=== PATIENT | female | born 1965 | race African-American/Black ===

== ENCOUNTER 2020-09-19 12:09 | Emergency (ER) | payer BC ==
--- NOTE | 2020-09-19 13:13 | RADIOLOGY REPORT (SQ) ---
EXAM DESCRIPTION: CHEST SINGLE VIEW IMAGES COMPLETED DATE/TIME: 09/19/2020 1:04 pm REASON FOR STUDY: shortness of breath COMPARISON: None. EXAM PARAMETERS: NUMBER OF VIEWS: One view. TECHNIQUE: An AP view of the chest was obtained. RADIATION DOSE: NA LIMITATIONS: None. FINDINGS: LUNGS AND PLEURA: Subtle bilateral peripheral patchy parenchymal opacities. There is no s izable pleural effusion or pneumothorax. MEDIASTINUM AND HILAR STRUCTURES: No mediastinal or hilar contour abnormality. HEART AND VASCULAR STRUCTURES: The cardiac silhouette and pulmonary vasculature are within normal pratt its. BONES: No acute findings. HARDWARE: None in the chest. OTHER: No other finding. IMPRESSION: Subtle bilateral peripheral patchy parenchymal opacities. Clinical correlation for sign s and symptoms of an atypical infection (including COVID-19) is recommended. TECHNICAL DOCUMENTATION: JOB ID: [id number]- All Rights Reserved Reading location - IP/workstation name: [email or web address]
[2020-09-19] MEDS ORDERED: BENZONATATE 100 MG CAPSULE PO ONE (13:29)
[2020-09-19] MEDS ORDERED: AZITHROMYCIN 250 MG TABLET PO ONE (13:29)
--- NOTE | 2020-09-19 13:49 | ER Document Report ---
ED Respiratory Problem - General Chief Complaint: Cough Stated Complaint: DIFFICULTY BREATHING Time Seen by Provider: 09/19/20 12:47 Primary Care Provider: AUBREY SOL MD [ACTIVE STAFF] - Follow up as needed Notes: Patient is a 55-year-old female presents emergency department with a chief complaint of a cough that she has had for the past 3 days. 5 days ago, the patient has a positive for COVID-19. Patient states that she had a slight fever at that time, but denies any fever now. Denies any nausea, vomiting, or diarrhea. Patient states that she continues to have a cough. - Related Data Allergies/Adverse Reactions: No Known Allergies Allergy (Unverified 09/19/20 12:51) Home Medications: Metoprolol Past Medical History - Social History Smoking Status: Never Smoker Family History: Reviewed & Not Pertinent - Past Medical History Cardiac Medical History: Reports: Hx Hypertension Review of Systems - Review of Systems Notes: REVIEW OF SYSTEMS: CONSTITUTIONAL : Denies recent illness. Denies recent unintentional weight loss. Denies fever, chills, or sweats. EENT: Denies eye, ear, throat, or mouth pain, discharge, or symptoms. Denies nasal or sinus congestion. CARDIOVASCULAR: Denies chest pain. RESPIRATORY: See HPI. GASTROINTESTINAL: Denies nausea, vomiting, and diarrhea. Denies abdominal pain. Denies constipation. GENITOURINARY: Denies difficulty urinating, burning, blood in urine, urgency or frequency. MUSCULOSKELETAL: Denies neck and back pain. Denies joint pain or swelling. SKIN: Denies rash, itchiness, or lesions HEMATOLOGIC : Denies easy bruising or bleeding. LYMPHATIC: Denies swollen, painful, enlarged glands. NEUROLOGICAL: Denies no numbness or tingling denies weakness. Denies headache. Denies altered mental status. Denies alteration in speech. PSYCHIATRIC: Denies stress, anxiety, alteration in sleep patterns, or depression. All other systems reviewed and negative. Physical Exam - Vital signs Vitals: Temp Pulse Resp BP Pulse Ox 98.7 F 93 18 143/73 H 92 09/19/20 12:53 09/19/20 12:53 09/19/20 12:53 09/19/20 12:53 09/19/20 12:53 - Notes Notes: PHYSICAL EXAMINATION: GENERAL: Appears well, healthy, well-nourished, no acute distress. HEAD: Normocephalic, atraumatic. EYES: PERRL, conjunctiva normal, all extraocular movements intact, sclera n onicteric ENT: Moist mucous membranes. NECK: Supple, no noticeable swelling, redness, rash. Normal range of motion. LUNGS: Diminished breath sounds in the bases. CARDIOVASCULAR: S1-S2, regular rate, regular rhythm. Radial pulses 2+, normal. ABDOMEN: Normoactive bowel sounds. Soft, nontender, no guarding, no rebound tenderness, and no masses palpated. EXTREMITIES: Normal strength and range of motion, no pitting or edema. No cyanosis. NEUROLOGICAL: Moves all extremities upon command. Strength 5/5 in all extremities. PSYCH: Normal mood, normal affect. SKIN: Warm, dry. No rash, lesions, ulcerations noted. Normal skin turgor. Course - Re-evaluation Re-evalutation: 09/19/20 14:41 Patient states that she feels better after receiving azithromycin and Tessalon Perles. Labs are unremarkable. Chest x-ray shows pneumonia. We will continue the azithromycin. Patient will continue quarantine. Follow-up precautions were given. Verbal discharge instructions were given to the patient. They verbalized understanding. They are stable for discharge. - Vital Signs Vital signs: Temp Pulse Resp BP Pulse Ox 98.7 F 93 18 143/73 H 92 09/19/20 12:53 09/19/20 12:53 09/19/20 12:53 09/19/20 12:53 09/19/20 12:53 - Laboratory Result Diagrams: 09/19/20 13:28 09/19/20 13:28 Laboratory results interpreted by me: 09/19/20 13:28 Carbon Dioxide 31 H BUN 5 L Glucose 140 H AST 83 H ALT 85 H Discharge - Discharge Clinical Impression: Cough Pneumonia Qualifiers: Pneumonia type: due to unspecified organism Laterality: unspecified laterality Lung location: unspecified part of lung Qualified Code(s): J18.9 - Pneumonia, unspecified organism Condition: Stable Disposition: HOME, SELF-CARE Additional Instructions: You were seen today in the emergency department for cough. You have pneumonia due to your COVID-19. Continue quarantining. Take the antibiotics as prescribed. Take the cough medicine every 8 hours. Prescriptions: Benzonatate [Tessalon Perles 100 mg Capsule] 100 mg PO Q8HP PRN #40 capsule PRN Reason: Azithromycin [Zithromax 250 mg Tablet] 250 mg PO DAILY #4 tablet Forms: Return to Work Referrals: AUBREY SOL MD [ACTIVE STAFF] - Follow up as needed
[2020-09-19 13:54] LABS: ABSOLUTE LYMPHOCYTES (AUTO) 1.2 10^3/uL (0.5-4.7); ABSOLUTE MONOCYTES (AUTO) 0.4 10^3/uL (0.1-1.4); ABSOLUTE NEUT (AUTO) 4.8 10^3/uL (1.7-8.2); BASOPHILS % (AUTO) 0.2 % (0-2); EOSINOPHILS % (AUTO) 0.1 % (0-6); HEMATOCRIT 40.9 % (36.0-47.0); HEMOGLOBIN 14.2 g/dL (12.0-15.5); MEAN CORPUSCULAR HEMOGLOBIN 29.8 pg (27.0-33.4); MEAN CORPUSCULAR HGB CONC 34.7 g/dL (32.0-36.0); MEAN CORPUSCULAR VOLUME 86 fl (80-97); MONOCYTES % (AUTO) 5.6 % (3-13); PLATELET COUNT 213 10^3/uL (150-450); RED BLOOD COUNT 4.76 10^6/uL (3.72-5.28); RED CELL DISTRIBUTION WIDTH 13.6 % (11.5-14.0); SEGMENTED NEUTROPHILS % (AUTO) 75.1 % (42-78); TOTAL CELLS COUNTED % (AUTO) 100 %; WHITE BLOOD COUNT 6.3 10^3/uL (4.0-10.5)
[2020-09-19 14:15] LABS: ALBUMIN 4.3 g/dL (3.5-5.0); ALKALINE PHOSPHATASE 106 U/L (38-126); ANION GAP 9 (5-19); ASPARTATE AMINO TRANSFERASE 83 U/L (14-36); BILIRUBIN,DIRECT 0.2 mg/dL (0.0-0.4); BILIRUBIN,TOTAL 0.6 mg/dL (0.2-1.3); BLOOD UREA NITROGEN 5 mg/dL (7-20); CALCIUM 9.5 mg/dL (8.4-10.2); CARBON DIOXIDE 31 mmol/L (22-30); CHLORIDE 102 mmol/L (98-107); GLUCOSE 140 mg/dL (75-110); POTASSIUM 3.9 mmol/L (3.6-5.0); TOTAL PROTEIN 7.8 g/dL (6.3-8.2)
[2020-09-19 15:43] VITALS: BP 132/70
== END 2020-09-19 15:43 | disposition home or self-care (01) ==
LOC: ER 12:09
DX: U07.1 COVID-19 (principal); J12.89 Other viral pneumonia; R05 Cough; I10 Essential (primary) hypertension; Z79.899 Other long term (current) drug therapy
CPT/HCPCS: 36415; 71045; 80053; 85025; 99284

== ENCOUNTER 2020-09-21 23:10 | Inpatient (IN) | payer BC ==
[2020-09-22] MEDS ORDERED: ACETAMINOPHEN 325 MG TABLET PO ONE (00:39)
--- NOTE | 2020-09-22 00:42 | ER Document Report ---
ED Medical Screen (RME) - General Chief Complaint: Shortness Of Breath Stated Complaint: COVID+ SHORTNESS OF BREATH/COUGH Primary Care Provider: PAMELLA CLEMENT FNP [Primary Care Provider] - Follow up as needed - HPI Notes: 09/22/20 00:37 Rapid Medical Exam HPI: This is a 55-year-old female presents to the ED complaining of shortness of breath associated with Covid. Patient's testing was positive for 11 days ago. She was seen in the ED about 3 to 4 days ago with similar symptoms and was diagnosed with pneumonia based on chest x-ray and discharged with a Z-Thanh and some cough meds.patient completed course of antibiotics and cough meds and says her symptoms have worsened. She complains of shortness of breath especially associated with coughing. Her temp in the ED is 100.5. Denies chest pain abdominal pain, nausea vomiting. Physical Exam: GENERAL: She appears ill but nontoxic. HEAD: Atraumatic, normocephalic. ENT: Moist mucous membranes. RESP: Respirations even and unlabored CV- Regular rate. NEURO: No focal neurological deficits. Moves all extremities spontaneously and on command. My involvement in this patients care was limited to a rapid initial assessment. A comprehensive ED assessment and evaluation of the patient, analysis of test results, treatment, and completion of the medical decision making process will be performed by other ER providers. 09/22/20 00:46 - Related Data Allergies/Adverse Reactions: No Known Allergies Allergy (Unverified 09/19/20 12:51) Past Medical History - Past Medical History Cardiac Medical History: Reports: Hx Hypertension Physical Exam - Vital signs Vitals: Temp Pulse Resp BP Pulse Ox 100.5 F H 108 H 19 176/76 H 97 09/21/20 23:26 09/21/20 23:26 09/21/20 23:26 09/21/20 23:26 09/21/20 23:26 Course - Vital Signs Vital signs: Temp Pulse Resp BP Pulse Ox 100.5 F H 108 H 19 176/76 H 97 09/21/20 23:26 09/21/20 23:26 09/21/20 23:26 09/21/20 23:26 09/21/20 23:26 Doctor's Discharge - Discharge Referrals: PAMELLA CLEMENT FNP [Primary Care Provider] - Follow up as needed
[2020-09-22] MEDS ORDERED: ACETAMINOPHEN 325 MG TABLET ONE (02:58)
[2020-09-22 03:36] LABS: ABSOLUTE LYMPHOCYTES (AUTO) 0.9 10^3/uL (0.5-4.7); ABSOLUTE MONOCYTES (AUTO) 0.6 10^3/uL (0.1-1.4); ABSOLUTE NEUT (AUTO) 8.5 10^3/uL (1.7-8.2); BASOPHILS % (AUTO) 0.3 % (0-2); HEMATOCRIT 38.3 % (36.0-47.0); HEMOGLOBIN 13.3 g/dL (12.0-15.5); MEAN CORPUSCULAR HEMOGLOBIN 29.7 pg (27.0-33.4); MEAN CORPUSCULAR HGB CONC 34.7 g/dL (32.0-36.0); MEAN CORPUSCULAR VOLUME 86 fl (80-97); MONOCYTES % (AUTO) 5.7 % (3-13); PLATELET COUNT 299 10^3/uL (150-450); RED BLOOD COUNT 4.47 10^6/uL (3.72-5.28); RED CELL DISTRIBUTION WIDTH 13.7 % (11.5-14.0); TOTAL CELLS COUNTED % (AUTO) 100 %
[2020-09-22 03:58] LABS: ANION GAP 14 (5-19); BLOOD UREA NITROGEN 8 mg/dL (7-20); CALCIUM 9.8 mg/dL (8.4-10.2); CARBON DIOXIDE 27 mmol/L (22-30); CHLORIDE 96 mmol/L (98-107); GLUCOSE 172 mg/dL (75-110)
--- NOTE | 2020-09-22 04:22 | RADIOLOGY REPORT (SQ) ---
CLINICAL HISTORY: covid, sob COMPARISON: 09/19/2020. 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 There are mild patchy bilateral scattered areas of airspace disease. There is no pleural effusion. There is no pneumothorax. There are no acute osseous findings. IMPRESSION: No change.
[2020-09-22] MEDS ORDERED: DEXAMETHASONE SOD PHOS INJ 10 MG/1 ML VIAL IV ONE (05:20)
[2020-09-22] MEDS ORDERED: IPRATROPIUM/ALBUTEROL 0.5-2.5 MG/3 ML AMPUL NEB ONE (05:20)
--- NOTE | 2020-09-22 05:31 | ER Document Report ---
ED Respiratory Problem - General Chief Complaint: Shortness Of Breath Stated Complaint: COVID+ SHORTNESS OF BREATH/COUGH Time Seen by Provider: 09/22/20 04:51 Primary Care Provider: PAMELLA CLEMENT FNP [Primary Care Provider] - Follow up as needed Notes: Patient presents complaining of worsening shortness of breath. The patient was diagnosed with Covid 11 days ago. Patient states she was seen in the emergency department a few days ago and diagnosed with pneumonia and given an antibiotic as well as cough medication. Patient reports worsening shortness of breath with temperature of 100.5 today. Patient denies any chest pain, nausea or vomiting. Reports only past medical history of hypertension. - HPI Patient complains to provider of: Cough, Short of breath. No: Asthma, Chest pain Onset: Other - 11 days ago Duration: Worse/persistent Initiating Event: URI Pain Level: Denies Context: denies: Hx asthma, Hx CHF, Hx COPD, Recent surgery, Smoker Cough: Nonproductive Associated symptoms: Cough, Fever, Short of breath. denies: Bloody cough, Chest pain/discomfort Similar symptoms previously: No Recently seen / treated by doctor: Yes - Related Data Allergies/Adverse Reactions: No Known Allergies Allergy (Unverified 09/19/20 12:51) Past Medical History - General Information source: Patient - Social History Smoking Status: Never Smoker Frequency of alcohol use: None Drug Abuse: None Occupation: Teacher Family History: Reviewed & Not Pertinent - Past Medical History Cardiac Medical History: Reports: Hx Hypertension Past Surgical History: Reports: Hx Section Review of Systems - Review of Systems Constitutional: Fever, Recent illness - +covid test 11 days ago EENT: No symptoms reported Cardiovascular: No symptoms reported. denies: Chest pain Respiratory: Cough, Short of breath Gastrointestinal: No symptoms reported. denies: Abdominal pain, Diarrhea, Nausea, Vomiting Genitourinary: No symptoms reported Female Genitourinary: No symptoms reported Musculoskeletal: No symptoms reported. denies: Back pain Skin: No symptoms reported Hematologic/Lymphatic: No symptoms reported Neurological/Psychological: No symptoms reported. denies: Confusion, Headaches Physical Exam - Vital signs Vitals: Temp Pulse Resp BP Pulse Ox 100.5 F H 108 H 19 176/76 H 97 09/21/20 23:26 09/21/20 23:26 09/21/20 23:26 09/21/20 23:26 09/21/20 23:26 - Notes Notes: PHYSICAL EXAMINATION: GENERAL: no acute distress. HEAD: Atraumatic, normocephalic. EYES: sclera anicteric, conjunctiva are normal. ENT: nares patent. Moist mucous membranes. NECK: Normal range of motion, supple without lymphadenopathy LUNGS: Crackles bilateral lower lobes, occasional cough, tachypnea, chest nontender HEART: Regular rate and rhythm without murmurs ABDOMEN: Soft, nontender, normal bowel sounds, no guarding. EXTREMITIES: Normal range of motion, no pitting edema. No cyanosis. BACK: No CVA tenderness NEUROLOGICAL: Cranial nerves grossly intact. Normal speech. Normal gait. PSYCH: Normal mood, normal affect. SKIN: Warm, Dry, normal turgor, no rashes or lesions noted Course - Re-evaluation Re-evalutation: 09/22/20 05:[address] by RN without oxygen. Oxygen saturation dropped to the mid 80s and patient was tachypneic. Patient does complain of exertional shortness of breath and shortness of breath with talking. Patient's oxygen saturation does drop while wearing O2 if she is speaking. Consulted with hospitalist Dr. Olivarez who advises adding on D-dimer, ferritin, CRP and CK and states that he will be by to evaluate patient. 09/22/20 07:09 The patient was evaluated during the global Covid 19 pandemic, and that diagnosis was suspected/considered upon their initial presentation. Their evaluation, treatment and testing was consistent with current guidelines for patients who present with complaints or symptoms that may be related to Covid 19. - Vital Signs Vital signs: Temp Pulse Resp BP Pulse Ox 98.2 F 102 H 29 H 151/89 H 90 L 09/22/20 02:52 09/22/20 02:52 09/22/20 06:51 09/22/20 06:51 09/22/20 06:51 - Laboratory Result Diagrams: 09/22/20 03:23 09/22/20 03:23 Laboratory results interpreted by me: 09/22/20 09/22/20 09/22/20 03:23 03:23 03:23 Lymph % (Auto) 9.0 L Absolute Neuts (auto) 8.5 H Seg Neutrophils % 85.0 H D-Dimer 0.96 H Sodium 136.7 L Chloride 96 L Glucose 172 H Creatine Kinase C-Reactive Protein 09/22/20 03:23 Lymph % (Auto) Absolute Neuts (auto) Seg Neutrophils % D-Dimer Sodium Chloride Glucose Creatine Kinase 1229 H C-Reactive Protein 222.3 H - Diagnostic Test Radiology reviewed: Image reviewed, Reports reviewed Discharge - Discharge Clinical Impression: COVID-19, Shortness of breath, Hypoxia, Multifocal pneumonia Condition: Fair Disposition: ADMITTED INPATIENT Admitting Provider: [facility] Unit Admitted: Medical Floor Referrals: PAMELLA CLEMENT FNP [Primary Care Provider] - Follow up as needed
[2020-09-22] MEDS ORDERED: ACETAMINOPHEN 650 MG SUPP.RECT PR PRN (06:00)
[2020-09-22] MEDS ORDERED: ONDANSETRON HCL INJ/PF 4 MG/2 ML SDV IV PRN (06:00)
--- NOTE | 2020-09-22 06:06 | PDOC H&P ---
History of Present Illness Admission Date/PCP: JUSTINO INIGUEZ Patient complains of: shortness of breath History of Present Illness: REDDY GARBER is a 55 year old female with a history of hypertension and obesity who was diagnosed with COVID-19 11 days back now presents with 2 days duration of worsening shortness of breath. Patient was seen at the ED 3 days back for a similar symptoms and was sent home with oral antibiotics. Today on this encounter her oxygen saturation was dropping down to mid 80s especially with minimal exertion. And is currently requiring 4 L of intranasal oxygen to saturate mid 90s. She reports that her cough has been improving and she has not spiked a fever in 2 days. She states that her sense of smell and taste is s lowly recovering. She denies any chest pain, palpitation, dizziness, nausea, vomiting, abdominal pain or diarrhea. Past Medical History Cardiac Medical History: Reports: Hypertension Social History Information Source: Patient Lives with: Family Smoking Status: Never Smoker Hx Recreational Drug Use: No Drugs: None - Advance Directive Resuscitation Status: Full Code Family History Family History: Reviewed & Not Pertinent Parental Family History Reviewed: Yes Children Family History Reviewed: Yes Sibling(s) Family History Reviewed.: Yes Medication/Allergy Home Medications: Azithromycin [Zithromax 250 mg Tablet] 250 mg PO DAILY #4 tablet 09/19/20 Benzonatate [Tessalon Perles 100 mg Capsule] 100 mg PO Q8HP PRN #40 capsule 09/19/20 Codeine Phosphate/Guaifenesin [Guaifen-Codeine 200-20 mg/10Ml] 10 ml PO Q6H PRN #120 ml 09/19/20 Allergies/Adverse Reactions: No Known Allergies Allergy (Unverified 09/19/20 12:51) Review of Systems Constitutional: PRESENT: fever(s). ABSENT: chills, headache(s), weight gain, weight loss Eyes: ABSENT: visual disturbances Ears: ABSENT: hearing changes Nose, Mouth, and Throat: ABSENT: headache(s), mouth pain, sore throat Cardiovascular: PRESENT: dyspnea on exertion. ABSENT: chest pain, edema, orthropnea, palpitations Respiratory: PRESENT: as per HPI Gastrointestinal: ABSENT: abdominal pain, constipation, diarrhea, hematemesis, hematochezia, nausea, vomiting Genitourinary: ABSENT: dysuria, hematuria Musculoskeletal: ABSENT: joint swelling Integumentary: ABSENT: rash, wounds Neurological: ABSENT: abnormal gait, abnormal speech, confusion, dizziness, focal weakness, syncope Psychiatric: ABSENT: anxiety, depression, homidical ideation, suicidal ideation Endocrine: ABSENT: cold intolerance, heat intolerance, polydipsia, polyuria Hematologic/Lymphatic: ABSENT: easy bleeding, easy bruising Physical Exam Vital Signs: Temp Pulse Resp BP Pulse Ox 98.2 F 102 H 21 H 161/67 H 94 09/22/20 02:52 09/22/20 02:52 09/22/20 03:21 09/22/20 03:21 09/22/20 03:21 Intake & Output 09/20/20 09/21/20 09/22/20 06:59 06:59 06:59 Weight 130.181 kg Additional comments: GENERAL APPEARANCE: Alert and oriented x3, in no acute distress, currently on 4 L intranasal oxygen saturating mid 90s HEENT: Normocephalic and atraumatic. No scleral icterus. Moist oral mucosa NECK: Supple. No lymphadenopathy or tenderness. No carotid bruit. No JVD CHEST: Symmetric. Nontender to palpation. LUNGS: Clear with good air entry bilaterally. No wheezing or crackles HEART: Regular rate and rhythm with normal S1 and S2. No murmurs, gallops, or rubs. ABDOMEN: Flat, soft, active bowel sounds, no direct or rebound tenderness. No organomegaly detected. No CVA tenderness EXTREMITIES: No cyanosis, clubbing, or edema. MUSCULOSKELETAL: No deformity, atrophy or swelling noted PSYCHIATRIC: Recent and remote memory is intact. Appropriate mood and affect. SKIN: Warm, dry, and well perfused. No lesions or rashes are noted. NEUROLOGIC: No focal sensory or motor deficits are noted. Results Laboratory Results: 09/22/20 03:23 09/22/20 03:23 09/22/20 09/22/20 03:23 03:23 WBC 10.0 RBC 4.47 Hgb 13.3 Hct 38.3 MCV 86 MCH 29.7 MCHC 34.7 RDW 13.7 Plt Count 299 Seg Neutrophils % 85.0 H Sodium 136.7 L Potassium 4.0 Chloride 96 L Carbon Dioxide 27 Anion Gap 14 BUN 8 Creatinine 0.52 Est GFR ( Amer) > 60 Glucose 172 H Calcium 9.8 Impressions: Chest X-Ray 09/22/20 00:27 IMPRESSION: No change. Assessment and Plan - Diagnosis (1) Acute respiratory failure with hypoxia Is this a current diagnosis for this admission?: Yes Plan: Diagnosed with COVID-19 infection based back Now presents with acute worsening of shortness of breath Currently requiring 4 L intranasal oxygen to saturate 94 to 95% Started on dexamethasone Continue vitamin D, zinc, vitamin C Ordered ferritin, CK, CRP, D-dimer and LDH levels Continue intranasal oxygen We will start her on remdesivir in the morning with convalescent plasma (2) Multifocal pneumonia Is this a current diagnosis for this admission?: Yes Plan: Chest x-ray shows bilateral patchy opacities Likely viral pneumonia due to COVID-19 Left treatments with azithromycin as outpatient Continue managing COVID-19 with hypoxia as stated above (3) COVID-19 virus infection Is this a current diagnosis for this admission?: Yes Plan: Diagnosis was confirmed 11 days back Currently being managed for acute respiratory failure Continue management as stated above (4) Hypertension Is this a current diagnosis for this admission?: Yes Plan: Blood pressure is within acceptable range Continue amlodipine Low-sodium diet (5) Morbid obesity with BMI of 45.0-49.9, adult Is this a current diagnosis for this admission?: Yes Plan: Encourage lifestyle modification including dietary changes and exercise - Time Time Spent with patient: 35 or more minutes Total Critical Time (Minutes): 40 Medications reviewed and adjusted accordingly: Yes Anticipated Discharge Disposition: Home, Self Care Anticipated Discharge Timeframe: within 72 hours - Inpatient Certification Based on my medical assessment, after consideration of the patient's comorbidities, presenting symptoms, or acuity I expect that the services needed warrant INPATIENT care.: Yes I certify that my determination is in accordance with my understanding of Medicare's requirements for reasonable and necessary INPATIENT services [42 CFR 412.3e].: Yes Medical Necessity: Failure to Improve With Outpatient Therapy, Need Close Monitoring Due to Risk of Patient Decompensation, Risk of Complication if Not Cared For in Hospital Post Hospital Care: D/C or Transfer Summary
[2020-09-22 06:58] LABS: C-REACTIVE PROTEIN 222.3 mg/L (<10.0)
[2020-09-22] MEDS: FAMOTIDINE 20 MG TABLET PO SCH ×2 (10:55→21:00)
[2020-09-22] MEDS: ASCORBIC ACID 500 MG TABLET PO SCH ×2 (10:55→18:26)
[2020-09-22] MEDS: ZINC SULFATE 220 MG CAPSULE PO SCH (10:55)
[2020-09-22] MEDS: ENOXAPARIN SODIUM INJ 40 MG/0.4 ML DISP.SYRIN SUBCUT SCH (10:55)
[2020-09-22] MEDS: CHOLECALCIFEROL (D3) 1,000 UNIT (25 MCG) TABLET PO SCH (10:55)
[2020-09-22] MEDS: NORMAL SALINE 1000 ML 1,000 ML IV PRN (10:56)
[2020-09-22 12:07] LABS: ALBUMIN 3.8 g/dL (3.5-5.0); ALKALINE PHOSPHATASE 99 U/L (38-126); ASPARTATE AMINO TRANSFERASE 159 U/L (14-36); BILIRUBIN,DIRECT 0.3 mg/dL (0.0-0.4)
[2020-09-22] MEDS: AMLODIPINE BESYLATE 10 MG TABLET PO SCH (13:05)
[2020-09-22] MEDS: AZITHROMYCIN 250 MG TABLET PO SCH (13:05)
[2020-09-22] MEDS ORDERED: REMDESIVIR 200 MG in NORMAL SALINE 250 ML IV ONE (14:00)
[2020-09-22] MEDS: GUAIFENESIN/CODEINE PHOS 100-10 MG/ 5 ML UDC PO PRN ×2 (14:13→21:00)
[2020-09-23] MEDS: NORMAL SALINE 1000 ML 1,000 ML IV PRN (01:02)
--- NOTE | 2020-09-23 03:56 | RADIOLOGY REPORT (SQ) ---
CT ANGIOGRAM CHEST WITH IV CONTRAST: 09/23/2020 2:53 AM ATHLETIC MONITOR HISTORY: 55-year old patient with COVID infection, dyspnea. TECHNIQUE: Postcontrast CT through the chest was performed per protocol for CT angiography. 3D Multiplanar reformations were performed at the workstation. Reconstructed sagittal and coronal images were also obtained through the chest. This exam was performed according to our departmental dose-optimization program, which includes automated exposure control, adjustment of the mA and/or KV according to the patient's size and/or use of iterative reconstruction technique. COMPARISON: None available FINDINGS: The heart size is enlarged. No large pericardial effusion is seen. No suspicious axillary or supraclavicular lymphadenopathy is seen. The carinal, pretracheal, precarinal, and paratracheal lymph nodes measuring at least 8 to 9 mm in short axis dimension. The thoracic aorta is within normal limits of size. There is suboptimal opacification of the pulmonary arteries. No obvious saddle embolism is seen. The main pulmonary artery is within normal limits in size. The thyroid gland is unremarkable. The central tracheobronchial tree is patent. There are groundglass airspace opacities and a mosaic distribution with some interlobular septal thickening. This is consistent with the patient's history of COVID infection. There is elevation of the right hemidiaphragm. No discrete pleural effusion is seen. There is no evidence of a pneumothorax. The bones demonstrate no suspicious lytic or blastic lesion. The visualized hepatic parenchyma is diffusely low in attenuation suggesting underlying hepatic steatosis. IMPRESSION: There are groundglass airspace opacities and a mosaic distribution with some interlobular septal thickening. This is consistent with the patient's history of COVID infection. There is suboptimal opacification of the pulmonary arteries. No gross embolism is seen, though evaluation is severely limited.
[2020-09-23 06:49] LABS: ANION GAP 10 (5-19); BLOOD UREA NITROGEN 14 mg/dL (7-20); CALCIUM 8.9 mg/dL (8.4-10.2); CARBON DIOXIDE 26 mmol/L (22-30); CHLORIDE 106 mmol/L (98-107); CREATINE KINASE 926 U/L (30-135); GLUCOSE 146 mg/dL (75-110); POTASSIUM 3.9 mmol/L (3.6-5.0)
[2020-09-23] MEDS ORDERED: INFLUENZA QUAD (6MOS+) 2020-21 VAC 0.5 ML SYR IM ONE (08:00)
[2020-09-23] MEDS: GUAIFENESIN/CODEINE PHOS 100-10 MG/ 5 ML UDC PO PRN ×2 (08:34→22:23)
[2020-09-23] MEDS: ZINC SULFATE 220 MG CAPSULE PO SCH (09:49)
[2020-09-23] MEDS: CHOLECALCIFEROL (D3) 1,000 UNIT (25 MCG) TABLET PO SCH (09:50)
[2020-09-23] MEDS: MULTIVITAMIN TABLET PO SCH (09:50)
[2020-09-23] MEDS: ASCORBIC ACID 500 MG TABLET PO SCH ×2 (09:50→17:50)
[2020-09-23] MEDS: AMLODIPINE BESYLATE 10 MG TABLET PO SCH (09:50)
[2020-09-23] MEDS: FAMOTIDINE 20 MG TABLET PO SCH ×2 (09:50→22:23)
[2020-09-23] MEDS: AZITHROMYCIN 250 MG TABLET PO SCH (09:50)
[2020-09-23] MEDS: ENOXAPARIN SODIUM INJ 40 MG/0.4 ML DISP.SYRIN SUBCUT SCH (09:51)
[2020-09-23] MEDS: DEXAMETHASONE SOD PHOS INJ 10 MG/1 ML VIAL IV SCH (09:51)
[2020-09-23] MEDS: REMDESIVIR 100 MG in NORMAL SALINE 250 ML IV SCH (09:51)
--- NOTE | 2020-09-23 14:58 | PDOC PROGRESS REPORT ---
Subjective Date:: 09/23/20 Subjective:: Patient seen and evaluated. Breathing appears to be improving. She is on suppl emental oxygen Reason For Visit: COVID+ SHORTNESS OF BREATH,HYPOXIA Physical Exam Vital Signs: Temp Pulse Resp BP Pulse Ox 98.2 F 89 20 121/70 93 09/23/20 11:14 09/23/20 14:00 09/23/20 11:14 09/23/20 11:14 09/23/20 11:14 Intake & Output 09/22/20 09/23/20 09/24/20 06:59 06:59 06:59 Intake Total 2590 1770 Balance 2590 1770 Weight 130.181 kg 131 kg General appearance: PRESENT: no acute distress Head exam: PRESENT: atraumatic, normocephalic Eye exam: PRESENT: conjunctiva pink, EOMI, PERRLA. ABSENT: scleral icterus Mouth exam: PRESENT: moist Neck exam: ABSENT: carotid bruit, JVD, lymphadenopathy, thyromegaly Respiratory exam: PRESENT: decreased breath sounds, rhonchi. ABSENT: rales, wheezes Cardiovascular exam: PRESENT: RRR. ABSENT: diastolic murmur, rubs, systolic murmur Pulses: PRESENT: normal dorsalis pedis pul Vascular exam: PRESENT: normal capillary refill GI/Abdominal exam: PRESENT: normal bowel sounds, soft. ABSENT: distended, guarding, mass, organolmegaly, rebound, tenderness Rectal exam: PRESENT: deferred Extremities exam: PRESENT: full ROM. ABSENT: calf tenderness, clubbing, pedal edema Neurological exam: PRESENT: alert, awake, oriented to person, oriented to place, oriented to time, oriented to situation. ABSENT: motor sensory deficit Psychiatric exam: PRESENT: appropriate affect, normal mood. ABSENT: homicidal ideation, suicidal ideation Skin exam: PRESENT: dry, intact, warm. ABSENT: cyanosis, rash Results Laboratory Results: 09/22/20 03:23 09/23/20 05:54 09/23/20 05:54 Sodium 141.8 Potassium 3.9 Chloride 106 Carbon Dioxide 26 Anion Gap 10 BUN 14 Creatinine 0.55 Est GFR ( Amer) > 60 Glucose 146 H Calcium 8.9 Ferritin 440.00 H C-Reactive Protein 183.0 H 09/22/20 09/23/20 03:23 05:54 Creatine Kinase 1229 H 926 H Impressions: Chest/Abdomen CTA 09/22/20 00:00 IMPRESSION: There are groundglass airspace opacities and a mosaic distribution with some interlobular septal thickening. This is consistent with the patient's history of COVID infection. There is suboptimal opacification of the pulmonary arteries. No gross embolism is seen, though evaluation is severely limited. Chest X-Ray 09/22/20 00:27 IMPRESSION: No change. Assessment and Plan - Diagnosis (1) Acute respiratory failure with hypoxia Is this a current diagnosis for this admission?: Yes Plan: Diagnosed with COVID-19 infection based back Now presents with acute worsening of shortness of breath Currently requiring 4 L intranasal oxygen to saturate 94 to 95% Started on dexamethasone Continue vitamin D, zinc, vitamin C Ordered ferritin, CK, CRP, D-dimer and LDH levels Continue intranasal oxygen We will start her on remdesivir in the morning with convalescent plasma 09/23 Continue current medications and wean off oxygen as tolerated (2) COVID-19 Is this a current diagnosis for this admission?: Yes (3) Hypertension Is this a current diagnosis for this admission?: Yes Plan: Blood pressure is within acceptable range Continue amlodipine Low-sodium diet Continue to monitor blood pressure and adjust medications as needed (4) Morbid obesity with BMI of 45.0-49.9, adult Is this a current diagnosis for this admission?: Yes Plan: Encourage lifestyle modification including dietary changes and exercise (5) Multifocal pneumonia Is this a current diagnosis for this admission?: Yes Plan: Chest x-ray shows bilateral patchy opacities Likely viral pneumonia due to COVID-19 Left treatments with azithromycin as outpatient Continue managing COVID-19 with hypoxia as stated above Continue current management - Time Time Spent with patient: 15-24 minutes Medications reviewed and adjusted accordingly: Yes Anticipated Discharge Disposition: Home, Self Care Anticipated Discharge Timeframe: within 72 hours
[2020-09-24] MEDS: REMDESIVIR 100 MG in NORMAL SALINE 250 ML IV SCH (10:20)
[2020-09-24] MEDS: DEXAMETHASONE SOD PHOS INJ 10 MG/1 ML VIAL IV SCH (10:20)
[2020-09-24] MEDS: ENOXAPARIN SODIUM INJ 40 MG/0.4 ML DISP.SYRIN SUBCUT SCH (10:21)
[2020-09-24] MEDS: CHOLECALCIFEROL (D3) 1,000 UNIT (25 MCG) TABLET PO SCH (10:22)
[2020-09-24] MEDS: MULTIVITAMIN TABLET PO SCH (10:22)
[2020-09-24] MEDS: ZINC SULFATE 220 MG CAPSULE PO SCH (10:22)
[2020-09-24] MEDS: FAMOTIDINE 20 MG TABLET PO SCH ×2 (10:22→21:51)
[2020-09-24] MEDS: ASCORBIC ACID 500 MG TABLET PO SCH ×2 (10:22→17:16)
[2020-09-24] MEDS: AMLODIPINE BESYLATE 10 MG TABLET PO SCH (10:22)
--- NOTE | 2020-09-24 17:09 | PDOC PROGRESS REPORT ---
Subjective Date:: 09/24/20 Subjective:: Patient seen and evaluated. Breathing appears to be improving. She is on suppl emental oxygen 09/24 Patient appears to be doing relatively well. Her breathing is improved. She s till on high flow oxygen but the plan is to taper this as tolerated Reason For Visit: COVID+ SHORTNESS OF BREATH,HYPOXIA Physical Exam Vital Signs: Temp Pulse Resp BP Pulse Ox 97.8 F 82 21 H 135/64 H 92 09/24/20 16:02 09/24/20 16:02 09/24/20 16:02 09/24/20 16:02 09/24/20 16:02 Intake & Output 09/23/20 09/24/20 09/25/20 06:59 06:59 06:59 Intake Total 2590 2880 730 Balance 2590 2880 730 Weight 131 kg 130.8 kg General appearance: PRESENT: no acute distress, morbidly obese, well-developed, well-nourished Head exam: PRESENT: atraumatic, normocephalic Eye exam: PRESENT: conjunctiva pink, EOMI, PERRLA. ABSENT: scleral icterus Ear exam: PRESENT: normal external ear exam Mouth exam: PRESENT: moist, tongue midline Neck exam: ABSENT: carotid bruit, JVD, lymphadenopathy, thyromegaly Respiratory exam: PRESENT: clear to auscultation jessica, unlabored. ABSENT: rales, rhonchi, wheezes Cardiovascular exam: PRESENT: RRR, +S1, +S2. ABSENT: diastolic murmur, rubs, systolic murmur Pulses: PRESENT: normal dorsalis pedis pul Vascular exam: PRESENT: normal capillary refill GI/Abdominal exam: PRESENT: normal bowel sounds, soft. ABSENT: distended, guarding, mass, organolmegaly, rebound, tenderness Rectal exam: PRESENT: deferred Extremities exam: PRESENT: full ROM. ABSENT: calf tenderness, clubbing, pedal edema Neurological exam: PRESENT: alert, awake, oriented to person, oriented to place, oriented to time, oriented to situation, CN II-XII grossly intact. ABSENT: motor sensory deficit Psychiatric exam: PRESENT: appropriate affect, normal mood. ABSENT: homicidal ideation, suicidal ideation Skin exam: PRESENT: dry, intact, warm. ABSENT: cyanosis, rash Results Laboratory Results: 09/22/20 03:23 09/23/20 05:54 09/22/20 09/23/20 03:23 05:54 Creatine Kinase 1229 H 926 H Impressions: Chest/Abdomen CTA 09/22/20 00:00 IMPRESSION: There are groundglass airspace opacities and a mosaic distribution with some interlobular septal thickening. This is consistent with the patient's history of COVID infection. There is suboptimal opacification of the pulmonary arteries. No gross embolism is seen, though evaluation is severely limited. Chest X-Ray 09/22/20 00:27 IMPRESSION: No change. Assessment and Plan - Diagnosis (1) Acute respiratory failure with hypoxia Is this a current diagnosis for this admission?: Yes Plan: Diagnosed with COVID-19 infection based back Now presents with acute worsening of shortness of breath Currently requiring 4 L intranasal oxygen to saturate 94 to 95% Started on dexamethasone Continue vitamin D, zinc, vitamin C Ordered ferritin, CK, CRP, D-dimer and LDH levels Continue intranasal oxygen We will start her on remdesivir in the morning with convalescent plasma 09/23 Continue current medications and wean off oxygen as tolerated 09/24 patient appears to be improving. She is still on the dexamethasone I will continue with this. She did receive remdesivir and if she remains stable will discharge her after her last dose continue to. Taper oxygen as tolerated (2) COVID-19 Is this a current diagnosis for this admission?: Yes (3) Hypertension Is this a current diagnosis for this admission?: Yes (4) Morbid obesity with BMI of 45.0-49.9, adult Is this a current diagnosis for this admission?: Yes (5) Multifocal pneumonia Is this a current diagnosis for this admission?: Yes - Time Time Spent with patient: 15-24 minutes Medications reviewed and adjusted accordingly: Yes Anticipated Discharge Disposition: Home, Self Care Anticipated Discharge Timeframe: within 72 hours
[2020-09-25 05:43] LABS: C-REACTIVE PROTEIN 62.1 mg/L (<10.0)
[2020-09-25] MEDS: ZINC SULFATE 220 MG CAPSULE PO SCH (09:21)
[2020-09-25] MEDS: AMLODIPINE BESYLATE 10 MG TABLET PO SCH (09:21)
[2020-09-25] MEDS: MULTIVITAMIN TABLET PO SCH (09:21)
[2020-09-25] MEDS: DEXAMETHASONE SOD PHOS INJ 10 MG/1 ML VIAL IV SCH (09:21)
[2020-09-25] MEDS: CHOLECALCIFEROL (D3) 1,000 UNIT (25 MCG) TABLET PO SCH (09:21)
[2020-09-25] MEDS: ASCORBIC ACID 500 MG TABLET PO SCH ×2 (09:21→17:01)
[2020-09-25] MEDS: FAMOTIDINE 20 MG TABLET PO SCH ×2 (09:21→21:15)
[2020-09-25] MEDS: ENOXAPARIN SODIUM INJ 40 MG/0.4 ML DISP.SYRIN SUBCUT SCH (09:22)
[2020-09-25] MEDS: REMDESIVIR 100 MG in NORMAL SALINE 250 ML IV SCH (09:54)
--- NOTE | 2020-09-25 17:26 | PDOC PROGRESS REPORT ---
Subjective Date:: 09/25/20 Subjective:: Patient seen and evaluated. Breathing appears to be improving. She is on suppl emental oxygen 09/24 Patient appears to be doing relatively well. Her breathing is improved. She s till on high flow oxygen but the plan is to taper this as tolerated 09/25Patient continues to improve clinically. She is down to about 3 L of oxygen now with oxygen saturation of 96%. She normally does not wear oxygen so the goal is to get out of oxygen. Her last dose of remdesivir is actually in a.m. and if patient remains stable she possibly could be discharged home. She remains on dexamethasone also Reason For Visit: COVID+ SHORTNESS OF BREATH,HYPOXIA Physical Exam Vital Signs: Temp Pulse Resp BP Pulse Ox 97.8 F 72 20 141/86 H 96 09/25/20 12:09 09/25/20 14:00 09/25/20 12:09 09/25/20 12:09 09/25/20 12:09 Intake & Output 09/24/20 09/25/20 09/26/20 06:59 06:59 06:59 Intake Total 2880 1910 250 Balance 2880 1910 250 Weight 130.8 kg 130.5 kg General appearance: PRESENT: no acute distress, morbidly obese, well-developed, well-nourished Head exam: PRESENT: atraumatic, normocephalic Eye exam: PRESENT: conjunctiva pink, EOMI, PERRLA. ABSENT: scleral icterus Ear exam: PRESENT: normal external ear exam Mouth exam: PRESENT: moist, tongue midline Neck exam: ABSENT: carotid bruit, JVD, lymphadenopathy, thyromegaly Respiratory exam: PRESENT: clear to auscultation jessica. ABSENT: rales, rhonchi, wheezes Cardiovascular exam: PRESENT: RRR, +S1, +S2. ABSENT: diastolic murmur, rubs, systolic murmur Pulses: PRESENT: normal dorsalis pedis pul Vascular exam: PRESENT: normal capillary refill GI/Abdominal exam: PRESENT: normal bowel sounds, soft. ABSENT: distended, guarding, mass, organolmegaly, rebound, tenderness Rectal exam: PRESENT: deferred Extremities exam: PRESENT: full ROM. ABSENT: calf tenderness, clubbing, pedal edema Neurological exam: PRESENT: alert, awake, oriented to person, oriented to place, oriented to time, oriented to situation, CN II-XII grossly intact. ABSENT: motor sensory deficit Psychiatric exam: PRESENT: appropriate affect, normal mood. ABSENT: homicidal ideation, suicidal ideation Skin exam: PRESENT: dry, intact, warm. ABSENT: cyanosis, rash Results Laboratory Results: 09/22/20 03:23 09/23/20 05:54 09/25/20 04:59 Ferritin 349.00 H C-Reactive Protein 62.1 H 09/22/20 09/23/20 03:23 05:54 Creatine Kinase 1229 H 926 H Impressions: Chest/Abdomen CTA 09/22/20 00:00 IMPRESSION: There are groundglass airspace opacities and a mosaic distribution with some interlobular septal thickening. This is consistent with the patient's history of COVID infection. There is suboptimal opacification of the pulmonary arteries. No gross embolism is seen, though evaluation is severely limited. Chest X-Ray 09/22/20 00:27 IMPRESSION: No change. Assessment and Plan - Diagnosis (1) Acute respiratory failure with hypoxia Is this a current diagnosis for this admission?: Yes (2) COVID-19 Is this a current diagnosis for this admission?: Yes (3) Hypertension Is this a current diagnosis for this admission?: Yes (4) Morbid obesity with BMI of 45.0-49.9, adult Is this a current diagnosis for this admission?: Yes (5) Multifocal pneumonia Is this a current diagnosis for this admission?: Yes - Plan Summary Summary: Patient continues to improve clinically. She is down to about 3 L of oxygen now with oxygen saturation of 96%. She normally does not wear oxygen so the goal is to get out of oxygen. Her last dose of remdesivir is actually in a.m. and if patient remains stable she possibly could be discharged home. She remains on dexamethasone also - Time Time Spent with patient: 15-24 minutes Medications reviewed and adjusted accordingly: Yes Anticipated Discharge Disposition: Home, Self Care Anticipated Discharge Timeframe: within 48 hours
[2020-09-26 08:41] LABS: ABSOLUTE BASOPHILS # (AUTO) 0.1 10^3/uL (0.0-0.2); ABSOLUTE EOSINOPHILS # (AUTO) 0.3 10^3/uL (0.0-0.6); ABSOLUTE LYMPHOCYTES (AUTO) 1.3 10^3/uL (0.5-4.7); ABSOLUTE MONOCYTES (AUTO) 0.8 10^3/uL (0.1-1.4); ABSOLUTE NEUT (AUTO) 8.9 10^3/uL (1.7-8.2); EOSINOPHILS % (AUTO) 2.7 % (0-6); HEMATOCRIT 36.1 % (36.0-47.0); HEMOGLOBIN 12.4 g/dL (12.0-15.5); LYMPHOCYTES % (AUTO) 11.7 % (13-45); MEAN CORPUSCULAR HEMOGLOBIN 29.5 pg (27.0-33.4); MEAN CORPUSCULAR HGB CONC 34.3 g/dL (32.0-36.0); MEAN CORPUSCULAR VOLUME 86 fl (80-97); MONOCYTES % (AUTO) 7.2 % (3-13); PLATELET COUNT 425 10^3/uL (150-450); RED BLOOD COUNT 4.21 10^6/uL (3.72-5.28); RED CELL DISTRIBUTION WIDTH 13.8 % (11.5-14.0); SEGMENTED NEUTROPHILS % (AUTO) 77.4 % (42-78); TOTAL CELLS COUNTED % (AUTO) 100 %; WHITE BLOOD COUNT 11.5 10^3/uL (4.0-10.5)
[2020-09-26 09:13] LABS: ALBUMIN 3.4 g/dL (3.5-5.0); ALKALINE PHOSPHATASE 88 U/L (38-126); ANION GAP 6 (5-19); ASPARTATE AMINO TRANSFERASE 69 U/L (14-36); BILIRUBIN,DIRECT 0.2 mg/dL (0.0-0.4); BILIRUBIN,TOTAL 0.7 mg/dL (0.2-1.3); BLOOD UREA NITROGEN 19 mg/dL (7-20); C-REACTIVE PROTEIN 51.4 mg/L (<10.0); CALCIUM 9.1 mg/dL (8.4-10.2); CARBON DIOXIDE 27 mmol/L (22-30); CHLORIDE 105 mmol/L (98-107); CREATINE KINASE 250 U/L (30-135); GLUCOSE 123 mg/dL (75-110); POTASSIUM 4.2 mmol/L (3.6-5.0); TOTAL PROTEIN 6.7 g/dL (6.3-8.2)
[2020-09-26] MEDS: MULTIVITAMIN TABLET PO SCH (09:31)
[2020-09-26] MEDS: AMLODIPINE BESYLATE 10 MG TABLET PO SCH (09:31)
[2020-09-26] MEDS: ZINC SULFATE 220 MG CAPSULE PO SCH (09:31)
[2020-09-26] MEDS: ASCORBIC ACID 500 MG TABLET PO SCH ×2 (09:31→17:08)
[2020-09-26] MEDS: FAMOTIDINE 20 MG TABLET PO SCH (09:31)
[2020-09-26] MEDS: DEXAMETHASONE SOD PHOS INJ 10 MG/1 ML VIAL IV SCH (09:32)
[2020-09-26] MEDS: CHOLECALCIFEROL (D3) 1,000 UNIT (25 MCG) TABLET PO SCH (09:32)
[2020-09-26] MEDS: ENOXAPARIN SODIUM INJ 40 MG/0.4 ML DISP.SYRIN SUBCUT SCH (09:33)
[2020-09-26] MEDS: REMDESIVIR 100 MG in NORMAL SALINE 250 ML IV SCH (10:30)
--- NOTE | 2020-09-26 12:28 | PDOC DISCHARGE SUMMARY ---
Impression - Admit/DC Date/PCP Admission Date/Primary Care Provider: 09/22/20 07:09 JUSTINO INIGUEZ Discharge Date: 09/26/20 - Discharge Diagnosis (1) Acute respiratory failure with hypoxia Is this a current diagnosis for this admission?: Yes (2) COVID-19 Is this a current diagnosis for this admission?: Yes (3) Hypertension Is this a current diagnosis for this admission?: Yes (4) Morbid obesity with BMI of 45.0-49.9, adult Is this a current diagnosis for this admission?: Yes (5) Multifocal pneumonia Is this a current diagnosis for this admission?: Yes - Assessment Summary: Patient continues to improve clinically. She is down to about 3 L of oxygen now with oxygen saturation of 96%. She normally does not wear oxygen so the goal is to get out of oxygen. Her last dose of remdesivir is actually in a.m. and if patient remains stable she possibly could be discharged home. She remains on dexamethasone also - Additional Information Resuscitation Status: Full Code Discharge Activity: Balance Activity w/Rest, Bedrest Referrals: PAMELLA CLEMENT FNP [Primary Care Provider] - Follow up as needed Prescriptions: Rivaroxaban [Xarelto 10 mg Tablet] 10 mg PO DAILY #30 tablet Home Medications: Benzonatate [Tessalon Perles 100 mg Capsule] 100 mg PO Q8HP PRN #40 capsule MDD FILLED 09/19 FOR 13 DAY SUPPLY 09/19/20 Codeine Phosphate/Guaifenesin [Guaifen-Codeine 200-20 mg/10Ml] 10 ml PO Q6H PRN #120 ml MDD FILLED 09/19 FOR 3 DAY SUPPLY 09/19/20 Amlodipine Besylate [Norvasc 10 mg Tablet] 10 mg PO DAILY 09/22/20 Multivitamin [Tab-A-Aniket (Multiple Vitamin) Tablet] 1 tab PO DAILY 09/22/20 Ascorbic Acid [Vitamin C 500 mg Tablet] 500 mg PO BID tablet 09/26/20 Cholecalciferol (Vitamin D3) [Vitamin D3 1000 Unit Tablet] 2,000 unit PO DAILY tablet 09/26/20 Guaifenesin/Codeine Phos [Robitussin-AC Liquid 5 ml Udcup] 5 ml PO QIDP PRN udc 09/26/20 Rivaroxaban [Xarelto 10 mg Tablet] 10 mg PO DAILY #30 tablet 09/26/20 Zinc Sulfate [Zinc-220 Capsule] 220 mg PO DAILY capsule 09/26/20 History of Present Illiness History of Present Illness: REDDY GARBER is a 55 year old female Patient was admitted with difficulty breathing and shortness of breath. She was diagnosed with Covid 19 about 11 days prior to presentation. She was admitted for further management due to hypoxia and acute respiratory failure. Hospital Course Hospital Course: Patient was admitted for further management. She was placed on oxygen and required as much as 10 L of oxygen however patient's oxygen use has been declining and currently requires about 2 L of oxygen especially with ambulation as she still gets pretty hypoxic. She completed 4 days of remdesivir IV and was treated with steroids during her hospital stay. She also received wheezing, vitamin D and other supportive therapy. Likely patient symptoms seem to improve and she has been improving daily. She remained afebrile throughout her hospital stay. Her LFTs normalizing and CPK which was initially elevated at 1000 229 is down to 250 today. C-reactive protein is also down to 51 from 222. Ensure patient has been making progressive recovery and at this point it is felt that she can be discharged home for outpatient follow-up. Her D-dimer today is 3.6 Physical Exam Vital Signs: Temp Pulse Resp BP Pulse Ox 98.0 F 77 20 112/62 91 L 09/26/20 11:43 09/26/20 11:43 09/26/20 11:43 09/26/20 11:43 09/26/20 11:43 Intake & Output 09/25/20 09/26/20 09/27/20 06:59 06:59 06:59 Intake Total 1909 1450 Balance 191 1450 Weight 130.5 kg 132 kg General appearance: PRESENT: no acute distress, morbidly obese, well-developed, well-nourished Head exam: PRESENT: atraumatic, normocephalic Eye exam: PRESENT: conjunctiva pink, EOMI, PERRLA. ABSENT: scleral icterus Ear exam: PRESENT: normal external ear exam Mouth exam: PRESENT: moist, tongue midline Neck exam: ABSENT: carotid bruit, JVD, lymphadenopathy, thyromegaly Respiratory exam: PRESENT: clear to auscultation jessica. ABSENT: rales, rhonchi, wheezes Cardiovascular exam: PRESENT: RRR, +S1, +S2. ABSENT: diastolic murmur, rubs, systolic murmur Pulses: PRESENT: normal dorsalis pedis pul Vascular exam: PRESENT: normal capillary refill GI/Abdominal exam: PRESENT: normal bowel sounds, soft. ABSENT: distended, guarding, mass, organolmegaly, rebound, tenderness Rectal exam: PRESENT: deferred Extremities exam: PRESENT: full ROM. ABSENT: calf tenderness, clubbing, pedal edema Neurological exam: PRESENT: alert, awake, oriented to person, oriented to place, oriented to time, oriented to situation, CN II-XII grossly intact. ABSENT: motor sensory deficit Psychiatric exam: PRESENT: appropriate affect, normal mood. ABSENT: homicidal ideation, suicidal ideation Skin exam: PRESENT: dry, intact, warm. ABSENT: cyanosis, rash Results Laboratory Results: WBC 11.5 10^3/uL (4.0-10.5) H 09/26/20 08:21 RBC 4.21 10^6/uL (3.72-5.28) 09/26/20 08:21 Hgb 12.4 g/dL (12.0-15.5) 09/26/20 08:21 Hct 36.1 % (36.0-47.0) 09/26/20 08:21 MCV 86 fl (80-97) 09/26/20 08:21 MCH 29.5 pg (27.0-33.4) 09/26/20 08:21 MCHC 34.3 g/dL (32.0-36.0) 09/26/20 08:21 RDW 13.8 % (11.5-14.0) 09/26/20 08:21 Plt Count 425 10^3/uL (150-450) 09/26/20 08:21 Lymph % (Auto) 11.7 % (13-45) L 09/26/20 08:21 [place] % (Auto) 7.2 % (3-13) 09/26/20 08:21 Eos % (Auto) 2.7 % (0-6) 09/26/20 08:21 Baso % (Auto) 1.0 % (0-2) 09/26/20 08:21 Absolute Neuts (auto) 8.9 10^3/uL (1.7-8.2) H 09/26/20 08:21 Absolute Lymphs (auto) 1.3 10^3/uL (0.5-4.7) 09/26/20 08:21 Absolute Monos (auto) 0.8 10^3/uL (0.1-1.4) 09/26/20 08:21 Absolute Eos (auto) 0.3 10^3/uL (0.0-0.6) 09/26/20 08:21 Absolute Basos (auto) 0.1 10^3/uL (0.0-0.2) 09/26/20 08:21 Seg Neutrophils % 77.4 % (42-78) 09/26/20 08:21 D-Dimer 3.61 ug/mL (0.00-0.50) H 09/26/20 08:21 Sodium 138.1 mmol/L (137-145) 09/26/20 08:21 Potassium 4.2 mmol/L (3.6-5.0) 09/26/20 08:21 Chloride 105 mmol/L (98-107) 09/26/20 08:21 Carbon Dioxide 27 mmol/L (22-30) 09/26/20 08:21 Anion Gap 6 (5-19) 09/26/20 08:21 BUN 19 mg/dL (7-20) 09/26/20 08:21 Creatinine 0.58 mg/dL (0.52-1.25) 09/26/20 08:21 Est GFR ( Amer) > 60 (>60) 09/26/20 08:21 Est GFR (MDRD) Non-Af > 60 (>60) 09/26/20 08:21 Glucose 123 mg/dL (75-110) H 09/26/20 08:21 Calcium 9.1 mg/dL (8.4-10.2) 09/26/20 08:21 Ferritin 349.00 ng/mL (11.1-264.0) H 09/25/20 04:59 Total Bilirubin 0.7 mg/dL (0.2-1.3) 09/26/20 08:21 Direct Bilirubin 0.2 mg/dL (0.0-0.4) 09/26/20 08:21 Neonat Total Bilirubin Not Reportable 09/26/20 08:21 Neonat Direct Bilirubin Not Reportable 09/26/20 08:21 Neonat Indirect Bili Not Reportable 09/26/20 08:21 AST 69 U/L (14-36) H 09/26/20 08:21 ALT 83 U/L (<35) H 09/26/20 08:21 Alkaline Phosphatase 88 U/L (38-126) 09/26/20 08:21 Lactate Dehydrogenase 671 U/L (120-246) H 09/22/20 06:41 Creatine Kinase 250 U/L (30-135) H 09/26/20 08:21 C-Reactive Protein 51.4 mg/L (<10.0) H 09/26/20 08:21 Total Protein 6.7 g/dL (6.3-8.2) 09/26/20 08:21 Albumin 3.4 g/dL (3.5-5.0) L 09/26/20 08:21 Blood Type O POSITIVE 09/22/20 09:36 Antibody Screen NEGATIVE 09/22/20 09:36 Impressions: Chest/Abdomen CTA 09/22/20 00:00 IMPRESSION: There are groundglass airspace opacities and a mosaic distribution with some interlobular septal thickening. This is consistent with the patient's history of COVID infection. There is suboptimal opacification of the pulmonary arteries. No gross embolism is seen, though evaluation is severely limited. Chest X-Ray 09/22/20 00:27 IMPRESSION: No change. Plan Health Concerns: Due to an elevated D-dimer of 3.6, patient has been sent home on prophylactic Xarelto milligrams daily. She will will need to be reevaluated and this discontinued as appropriate as outpatient. Time Spent: Greater than 30 Minutes Stroke Is this a Stroke Patient?: No Acute Heart Failure Is this a Heart Failure Patient?: No
[2020-09-26 17:03] VITALS: BP 142/78
== END 2020-09-26 17:41 | disposition home or self-care (01) | DRG 177 ==
LOC: ER 23:10 → EH 09-22 07:09 → 3W 09-22 08:50
PROVIDERS: ADMIT Student in an Organized Health Care Education/Training Program; ATTEND Internal Medicine
PROC: XW033E5 Introduction of Remdesivir Anti-infective into Peripheral Vein, Percutaneous Approach, New Technology Group 5 (ICD-10-PCS; principal; 2020-09-22)
PROC: 3E02340 Introduction of Influenza Vaccine into Muscle, Percutaneous Approach (ICD-10-PCS; 2020-09-26)
DX: U07.1 COVID-19 (principal); J12.89 Other viral pneumonia; J96.01 Acute respiratory failure with hypoxia; Z68.42 Body mass index [BMI] 45.0-49.9, adult; I10 Essential (primary) hypertension; E66.9 Obesity, unspecified; Z23 Encounter for immunization; Z79.899 Other long term (current) drug therapy; Z79.891 Long term (current) use of opiate analgesic
CPT/HCPCS: 36415; 71045; 71275; 80048; 80053; 80076; 82550; 82728; 83615; 85025; 85379; 86140; 86850; 86900; 86901; 90471; 90686; 94640; 96374; 99285; G0008; J1100; J1650; J3490; J7030; J7050